=== PATIENT | female | born 1985 | race Caucasian/White ===

== ENCOUNTER 2018-09-08 19:25 | Emergency (ER) | payer BC ==
[~2018-09-08] VITALS: Ht 157.5 cm; Wt 68.2 kg
--- NOTE | 2018-09-08 23:03 | REPVR ---
EXAM: US First Trimester, Transabdominal and US , Transvaginal EXAM DATE/TIME: 09/08/2018 10:07 PM CLINICAL HISTORY: 33 years old, female; Signs and symptoms; Lmp or gestational age (in weeks): 13wk5d; Other: Unable to void; ; Additional info: Inability to void. Cystitis; Pelvic pain 13 weeks TECHNIQUE: Imaging protocol: Real-time transabdominal obstetrical ultrasound of the maternal pelvis and a first trimester , less than 14 weeks 0 days, with image documentation. Transvaginal imaging was used for better evaluation of the fetus and adnexa. COMPARISON: No relevant prior studies available. FINDINGS: GESTATION: Gestation: Single intrauterine gestation. Heart rate: 145 bpm Placenta: Unremarkable. No subchorionic bleed. Amniotic fluid: Amniotic and chorionic fluid are normal for gestational age. BIOMETRY: Estimated gestational age: 13 weeks 6 days MATERNAL: Uterus: Unremarkable. Cervix: 3.9 cm Right adnexa: Unremarkable. Ovary not visualized. Left adnexa: Unremarkable. Ovary not visualized. Intraperitoneal: No intraperitoneal free fluid. IMPRESSION: Single live intrauterine with gestational age of 13 weeks 6 days. Electronically signed by: Lisa Francisco On 09/08/2018 23:02:35 PM
--- NOTE | 2018-09-08 23:05 | REPVR ---
EXAM: US Pelvis Limited, Transabdominal EXAM DATE/TIME: 09/08/2018 10:07 PM CLINICAL HISTORY: 33 years old, female; Signs and symptoms; Bladder; Incontinence; Urge; Additional info: Inability to void. Cystitis TECHNIQUE: Imaging protocol: Real-time transabdominal pelvic ultrasound with image documentation. Limited exam. COMPARISON: US OBS DANAY OTTO 09/08/2018 9:59 PM FINDINGS: The urinary bladder measures 7.2 x 9.1 x 3.2 cm with a volume of 137 cc. After voiding, the bladder measures 5.1 x 5.4 x 0.7 cm with a volume of 13 cc. There is a postvoid residual of 9.5%. IMPRESSION: Small postvoid residual as noted. Electronically signed by: Lisa Francisco On 09/08/2018 23:04:30 PM
[2018-09-08] MEDS ORDERED: KEFL500C17 PO (23:29)
[2018-09-08 23:32] VITALS: BP 121/72
[2018-09-08] MEDS ORDERED: CEPHALEXIN 500 MG CAP PO ONE (23:45)
== END 2018-09-08 23:37 | disposition home or self-care (01) ==
LOC: M ED 19:25
DX: O23.12 Infections of bladder in pregnancy, second trimester (principal); Z3A.13 13 weeks gestation of pregnancy